=== PATIENT | male | born 1950 | race Caucasian/White ===

== ENCOUNTER 2019-06-08 23:34 | Inpatient (IN) ==
--- NOTE | 2019-06-09 00:14 | EKG Report ---
Test Performed on : 06/08/2019 11:43:29 PM Test Reason : CP Blood Pressure : / mmHG Vent. Rate : 098 BPM Atrial Rate : 288 BPM P-R Int : 000 ms QRS Dur : 088 ms QT Int : 348 ms P-R-T Axes : 000 027 -59 degrees QTc Int : 444 ms Atrial fibrillation. with premature ventricular or aberrantly conducted complexes. Nonspecific ST and T wave abnormality Abnormal ECG When compared with ECG of 21-MAY-2019 10:00, (Unconfirmed) Nonspecific T wave abnormality, improved in Lateral leads Unconfirmed Result
[2019-06-09] MEDS ORDERED: ASPIRIN PO ONE (00:37)
[2019-06-09 01:31] LABS: ALB/GLOB RATIO 2.1; ALBUMIN 4.5 g/dL (3.5-5.0); CALCIUM 8.9 mg/dL (8.8-10.2); CREATININE 1.3 mg/dL (0.7-1.2); MAGNESIUM 1.7 mg/dL (1.5-2.7); POTASSIUM 4.9 mmol/L (3.5-5.1); TOTAL BILIRUBIN 0.49 mg/dL (0.20-1.00); TOTAL PROTEIN 6.6 g/dL (6.3-8.3)
--- NOTE | 2019-06-09 02:08 | PROVIDER DOCUMENTATION ---
This chart was entered by Leanna Vazquez Scribe, acting as scribe for Aura Montoya MD. HPI-Chest Pain - General Chief Complaint: Chest Pain Stated Complaint: CEHST PAIN, HEART FLUTTERING Time Seen by Provider: 06/09/19 00:19 Source: patient Allergies/Adverse Reactions: Patient Allergies Allergy/AdvReac Type Severity Reaction Status Date / Time No Known Allergies Allergy Verified 06/16/18 09:14 Home Medications: Home Medication List Medication Instructions Recorded Confirmed Last Taken Type Allopurinol 100 mg PO DAILY 12/23/17 06/09/19 12/13/18 History Donepezil [Aricept] 10 mg PO QHS 12/23/17 06/09/19 12/12/18 History Carvedilol [Coreg] 12.5 mg PO BID 12/26/17 06/09/19 12/13/18 History Metformin [Glucophage] 500 mg PO BID CC 12/26/17 06/09/19 12/13/18 History PRAVAstatin [Pravachol] 20 mg PO DAILY 12/26/17 06/09/19 12/13/18 History Furosemide [Lasix] 40 mg PO DAILY #30 tab 01/01/18 06/09/19 12/13/18 Rx Spironolactone [Aldactone] 25 mg PO DAILY #30 tab 01/01/18 06/09/19 12/13/18 Rx Sacubitril/Valsartan [Entresto 24 1 tab PO BID 06/16/18 06/09/19 12/13/18 History mg-26 mg Tablet] Tamsulosin [Flomax] 0.4 mg PO DAILY 06/19/18 06/09/19 12/13/18 History Apixaban [Eliquis] 5 mg PO BID 12/13/18 06/09/19 Unknown History Omeprazole 40 mg PO DAILY 12/13/18 06/09/19 12/13/18 History Doxepin HCl [Silenor] 3 mg PO HS PRN 06/09/19 06/09/19 Unknown History - History of Present Illness-CP Nature of Presenting Problem: Pt is a 69 yom who presents to the ED with a cc of L side chest pain that began at 10 pm. States that he was resting when the pain began. Also reports SOB. Reports hx of [place] and cardiac stent. Reports L shoulder pain. Denies any N/V/D Denies fever, cough, or headache. Denies dizziness. Does not present to the ED with any other complaints. Reports hx of afib. Location: reports: other (L side of chest) Chest Pain Radiation: reports: shoulders (L shoulder) Quality of Pain: reports: sharp Severity in ED: mild Onset/Duration: 1-3 hours ago Timing: still present Context/Activities at Onset: reports: rest Modifying Factors: improves with: nothing Associated Symptoms: reports: shortness of breath Nitro Today/Relief: no nitro taken today Aspirin Treatment Today: no aspirin today Prior Chest Pain/Cardiac Workup: reports: other (cardiac stent) Similar Symptoms Previously?: Yes Recently Seen Here or By Another Healthcare Provider: No Review of Systems - Adult - REVIEW OF SYSTEMS - ADULT Constitutional: reports: see HPI Eyes: reports: no symptoms reported Ears, Nose, Mouth & Throat: reports: no symptoms reported Cardiovascular: reports: see HPI, chest pain (L side) Respiratory: reports: see HPI, shortness of breath Gastrointestinal: reports: no symptoms reported Genitourinary: reports: no symptoms reported Musculoskeletal: reports: see HPI, joint pain (L shoulder) Integumentary: reports: no symptoms reported Neurological: reports: no symptoms reported Psychiatric: reports: no symptoms reported Endocrine: reports: no symptoms reported Hematologic/Lymphatic: reports: no symptoms reported Allergic/Immunologic: reports: no symptoms reported All Other Systems: Reviewed and Negative Past History - Adult - PAST MEDICAL HISTORY-ADULT Review of Records: reports: Old Records Reviewed, Nursing Assessment Review, Medications Reviewed, Social history reviewed & non-contributory. Major Childhood Illnesses: reports: denies history Cardiovascular: reports: A-Fib, HTN Respiratory: reports: denies history Gastrointestinal: reports: denies history Obstetrical/Gynecological: reports: denies history Genitourinary: reports: denies history Musculoskeletal: reports: denies history Neurological: reports: denies history Endocrine/Immune: reports: Diabetes Other Conditions: reports: denies history - SOCIAL HISTORY Smoking: quit greater than 1 year Substance Use: denies Living Situation: family Physical Exam-General - PHYSICAL EXAM-ADULT Initial Vital Signs Reviewed: No - CONSTITUTIONAL General Appearance: alert, no apparent distress - EYES Eyes: pink conjunctivae - HEAD, EARS, NOSE, MOUTH & THROAT HENMT: normocephalic/atraumatic, moist mucous membranes, normal ENT inspection - NECK Neck: non-tender, full range of motion, supple, normal inspection - RESPIRATORY Respiratory: lungs clear, normal breath sounds. negative: chest non-tender (L side tenderness), crackles - CARDIOVASCULAR Cardiovascular: normal peripheral pulses, regular rate, rhythm - GASTROINTESTINAL (ABDOMEN) Abdominal Exam: normal bowel sounds, non tender, soft - MUSCULOSKELETAL Extremity: normal range of motion, normal inspection - SKIN Integumentary: normal color, normal turgor, warm/dry. negative: ecchymosis, erythema - NEUROLOGIC Neurologic: grossly normal - PSYCHIATRIC Psych/Mental Status: normal mood/affect, normal thought content, normal thought process, oriented x 3 - HEART Score HEART Score: History: Moderately Suspicious HEART Score: ECG: Non-Specific Repolarization Disturbance/LBBB/PM HEART Score: Age: > or = 65 Years HEART Score: Risk Factors for Atherosclerotic Disease: > or = 3 Risk Factors or History of Atherosclerotic Disease HEART Score: Troponin: < or = Normal Limit Total HEART Score:: 6 Progress - PLAN OF CARE/RESULTS Progress/Plan/Lab Results: Vital Signs - 8 hr 06/09/19 00:14 06/09/19 01:13 Temperature 97.9 F Pulse Rate 98 H 86 Respiratory Rate 17 16 Blood Pressure 135/84 131/62 O2 Sat by Pulse Oximetry 98 98 Laboratory Results - last 24 hr 06/09/19 06/09/19 06/09/19 00:32 00:32 00:32 WBC 2.36 L RBC 2.80 L Hgb 7.0 L Hct 23.4 L MCV 83.6 MCH 26.1 L MCHC 31.2 L RDW Std Deviation 18.1 H Plt Count 180 MPV 10.4 Neut % (Auto) 52.5 Lymph % (Auto) 19.5 L [place] % (Auto) 24.2 H Eos % (Auto) 0.0 Baso % (Auto) 0.8 Immature Gran # (Auto) 0.07 H Neut # (Auto) 1.24 L Lymph # (Auto) 0.46 L [place] # (Auto) 0.57 Eos # (Auto) 0.00 Baso # (Auto) 0.02 Sodium 135 L Potassium 4.9 Chloride 101 Carbon Dioxide 22 L Anion Gap 12 BUN 32 H Creatinine 1.3 H Estimated GFR/1.73 m2 54 BUN/Creatinine Ratio 25 Glucose 304 H Calculated Osmolality 288 Calcium 8.9 Magnesium 1.7 Total Bilirubin 0.49 AST 31 ALT 30 Alkaline Phosphatase 214 H Creatine Kinase 43 Troponin T High Sens 29 H Total Protein 6.6 Albumin 4.5 Globulin 2.1 Albumin/Globulin Ratio 2.1 Orders Category Date Time Status CHEST-1 VIEW [RAD] Stat Exams 06/09/19 00:52 Taken CBC WITH ELECTRONIC DIFF [HEME] Stat Lab 06/09/19 00:32 Completed CK PROFILE [SP CHEM] Stat Lab 06/09/19 00:32 Completed COMPREHENSIVE METABOLIC PANEL [CHEM] Stat Lab 06/09/19 00:32 Completed MAGNESIUM [CHEM] Stat Lab 06/09/19 00:32 Completed TROPONIN T HIGH SENSITIVITY Stat Lab 06/09/19 00:32 Completed Aspirin Med 06/09/19 00:37 Discontinued 324 mg PO NOW ONE EKG [EKG] Stat Ther 06/08/19 23:36 Draft Result Diagrams: 06/09/19 00:32 06/09/19 00:32 - EKG 1 Time of EKG reading by physician:: 23:45 EKG Read and Signed by:: Aura Montoya EKG Interpretation (*Must complete 3 of following elements*): Abnormal Rate: 98 Rhythm: AFib with premature ventricular or aberrantly conducted complexes [place]: normal QRS: normal HI Interval: normal ST Wave: non-specific ST changes (and t wave abnormality) Prior EKG Comparison: no prior EKG Comments: agree no stemi - CONSULTS/PCP/HOSPITALIST Notification #1 *Consult/PCP/Hospitalist*: D/W DR PAULSON Time Discussed: 02:04 Consult Disposition: Admit Departure - Departure Date of Disposition Decision: 06/09/19 Time of Disposition Decision: 02:06 DIAGNOSIS: Chest pain, Anemia Disposition: ADMITTED INPATIENT 09 Certified Medical Emergency: Emergent Condition: Stable Referrals and Follow-Ups: None,PCP [Primary Care Provider] - - Critical Care Note This patient required my direct & personal management of CC.: No Attestation - Physician/ STEFANIE Attestation Patient care was provided by Advanced Practice Provider:: No The physician spent face to face time with patient:: Yes Advanced Practice Provider documentation review:: Supervising physician onsite and consulted in the evaluation and care of this patient. The physician did have a face to face encounter with the patient. This chart was documented by the indicated scribe, (Leanna Vazquez Scribe) and accurately reflects the services I performed and decisions made by me, Aura Montoya MD, as attested by the provider's signature.
[2019-06-09 02:25] LABS: INR 1.13; PROTIME 14.7 Seconds (11.0-16.0)
[2019-06-09] MEDS ORDERED: TYLENOL PO PRN (03:12)
[2019-06-09] MEDS ORDERED: ZOFRAN IV PRN (03:12)
[2019-06-09 03:38] LABS: BASO# 0.02 X1000 (0.0-0.2); BASO% 0.9 % (0.0-0.8); EOS# 0.01 X1000 (0.0-0.7); EOS% 0.5 % (0.0-10.0); HEMATOCRIT 23.4 % (42.0-52.0); HEMOGLOBIN 7.3 g/dL (14.0-18.0); IMM GRAN# 0.09 X1000 (0.0-0.04); IMM GRAN% 4.1 % (0.0-0.5); LYMPH# 0.48 X1000 (1.2-3.4); LYMPH% 21.6 % (20.5-51.1); MCH 26.1 PG (27-31); MCHC 31.2 g/dL (33-37); MCV 83.6 FL (81-99); MONO# 0.46 X1000 (0.11-0.59); MONO% 20.7 % (1.7-9.3); MPV 9.5 FL (7.4-10.4); NEUT# 1.16 X1000 (1.4-6.5); NEUT% 52.2 % (42.2-75.2); PLT 180 X1000 (130-400); RBC 2.75 XMIL (4.7-6.1); RDW 18.1 % (11.5-14.5); WBC 2.22 X1000 (4.8-10.8)
[2019-06-09] MEDS: LASIX IV SCH ×2 (04:14→16:08)
[2019-06-09 04:21] LABS: IRON SATURATION 42 %; TIBC 309 ug/dL; TOTAL IRON 129 ug/dL (53-167); UNBOUND IRON 180 ug/dL (112-346)
--- NOTE | 2019-06-09 05:23 | Diag Imaging Result Doc PS360 ---
EXAM: CHEST-1 VIEW HISTORY: cp TECHNIQUE: Single view COMPARISON: 12/28/2017 FINDINGS: The lungs are well expanded. The heart enlarged. There are sternal wires. Mild central vascular prominence. There are no infiltrates. No effusion identified. IMPRESSION: Cardiomegaly with mild central vascular prominence. Electronically signed by Hakan Franklin 06/09/2019 5:21 AM
[2019-06-09] MEDS: LOVENOX SUBQ SCH ×3 (05:30→17:25)
--- NOTE | 2019-06-09 06:07 | EKG Report ---
Test Performed on : 06/09/2019 05:02:58 AM Test Reason : Follow up EKG Blood Pressure : / mmHG Vent. Rate : 077 BPM Atrial Rate : 072 BPM P-R Int : 000 ms QRS Dur : 094 ms QT Int : 380 ms P-R-T Axes : 000 011 -36 degrees QTc Int : 430 ms Atrial fibrillation. Nonspecific T wave abnormality Abnormal ECG When compared with ECG of 08-JUN-2019 23:43, (Unconfirmed) No significant change was found Confirmed by Nel Machado MD ([id number]) on 06/09/2019 8:42:23 AM
[2019-06-09] MEDS: HUMALOG SUBQ SCH ×4 (07:00→21:21)
[2019-06-09 07:13] LABS: BASO# 0.01 X1000 (0.0-0.2); BASO% 0.5 % (0.0-0.8); EOS# 0.01 X1000 (0.0-0.7); EOS% 0.5 % (0.0-10.0); HEMATOCRIT 22.8 % (42.0-52.0); HEMOGLOBIN 7.1 g/dL (14.0-18.0); IMM GRAN# 0.09 X1000 (0.0-0.04); IMM GRAN% 4.3 % (0.0-0.5); LYMPH# 0.52 X1000 (1.2-3.4); LYMPH% 24.8 % (20.5-51.1); MCH 25.9 PG (27-31); MCHC 31.1 g/dL (33-37); MCV 83.2 FL (81-99); MONO# 0.42 X1000 (0.11-0.59); MPV 8.3 FL (7.4-10.4); NEUT# 1.05 X1000 (1.4-6.5); NEUT% 49.9 % (42.2-75.2); PLT 143 X1000 (130-400); RBC 2.74 XMIL (4.7-6.1); RDW 17.9 % (11.5-14.5)
[2019-06-09] MEDS: PRILOSEC PO SCH (07:16)
[2019-06-09] MEDS ORDERED: GLUCOPHAGE PO SCH (08:00)
[2019-06-09 08:13] LABS: ANISOCYTOSIS OCCASIONAL; HYPOCHROM OCCASIONAL; LYMPHS 32 % (21-51); MICROCYTOSIS OCCASIONAL; MONO 18 % (1-9); SEGS 48 % (42-75)
[2019-06-09] MEDS ORDERED: ELIQUIS PO SCH (09:00)
[2019-06-09] MEDS ORDERED: PRAVACHOL PO SCH (09:00)
--- NOTE | 2019-06-09 09:35 | EKG Report ---
Test Performed on : 06/09/2019 08:21:05 AM Test Reason : CP Blood Pressure : / mmHG Vent. Rate : 093 BPM Atrial Rate : 129 BPM P-R Int : 000 ms QRS Dur : 094 ms QT Int : 378 ms P-R-T Axes : 000 011 154 degrees QTc Int : 469 ms Atrial fibrillation. with premature ventricular or aberrantly conducted complexes. Nonspecific T wave abnormality Abnormal ECG When compared with ECG of 09-JUN-2019 08:18, (Unconfirmed) Previous ECG has undetermined rhythm, needs review Confirmed by Nel Machado MD ([id number]) on 06/11/2019 4:13:52 PM
--- NOTE | 2019-06-09 10:37 | HISTORY AND PHYSICAL ---
SOURCE OF HISTORY: Patient. CHIEF COMPLAINT: Intermittent chest pain. HISTORY OF PRESENT ILLNESS: Mr. Thompson is a 69-year-old man with past medical history of coronary artery disease requiring CABG in , multiple stents in the past, transcutaneous aortic valve replacement in year 2017, chronic anemia, portal hypertension with ascites, chronic atrial fibrillation on Eliquis, who comes in with chief complaints of intermittent chest pain which has been ongoing for several months. The patient has dementia and the patient's daughter, who provided historical data to the emergency room physician, has already left so my source of history is only emergency room records and my conversation with the emergency room physician. The patient has not been able to provide meaningful historical data. However, patient does mention that he has been having intermittent chest pain since quite some time, located in the center of the heart, associated with shortness of breath, palpitations. However, he could not tell me the nature of his chest pain, radiation symptoms. He states that often times physical exertion makes it worse and at rest, he may get better. However, considering his dementia and inconsistency in his responses, the historical data could not be confirmed. In the emergency room, he was found to be hemodynamically stable with a saturation of 98% on room air. Considering his chest pain symptoms and history of coronary artery disease, Hospitalist team was consulted for further management. REVIEW OF SYSTEMS: Could not be obtained. PAST MEDICAL HISTORY: 1. Coronary artery bypass graft in requiring multiple stents. 2. Transcutaneous aortic valve replacement in 2017. 3. Previous history of chronic alcohol abuse which he quit about 8 years ago. 4. Dementia. 5. Chronic anemia. 6. Congestive heart failure with ejection fraction of 35% in 2018 which improved to 55% in 2019. 7. History of chronic obstructive pulmonary disease. ALLERGIES: No known allergies. PAST SURGICAL HISTORY: 1. Includes transcutaneous aortic valve replacement. 2. Coronary artery bypass graft. SOCIAL HISTORY: 1. Currently he denies any smoking. 2. Previous history of alcohol abuse, unclear when he exactly quit, probably 6 to 8 years ago. 3. No recreational substance. FAMILY HISTORY: Noncontributory. CURRENT MEDICATIONS: 1. Donepezil 10 mg at nighttime. 2. Allopurinol 100 mg daily. 3. Pravastatin 20 mg daily. 4. Carvedilol 12.5 mg b.i.d. 5. Metformin 500 mg b.i.d. 6. Furosemide 40 mg daily. 7. Spironolactone 25 mg daily. 8. Entresto 1 tablet b.i.d. 9. Tamsulosin 0.4 mg daily. 10. Apixaban 5 mg b.i.d. 11. Omeprazole 40 mg daily. 12. Doxepin 3 mg at nighttime as needed. CURRENT VITAL SIGNS: Temperature of 97.9 degrees, pulse 86, respiratory rate 16, blood pressure 131/60, saturating 98% room air. PHYSICAL EXAMINATION: GENERAL: The patient is not in acute distress. HEENT: Oral cavity is moist. LUNGS: Air entry bilaterally equal. No wheeze, rhonchi, or crackles. CARDIOVASCULAR: S1, S2 normal. Irregularly irregular. No murmur, rub or gallop. He does have occasional S3 gallop. ABDOMEN: Soft. Tympanic to percussion. EXTREMITIES: He has bilateral lower extremity edema. NECK: He has significant distention of jugular venous pulsation. His jugular venous pulsation could be identified at anterior border of sternocleidomastoid at the jaw line. NEUROLOGIC: He is alert, he is oriented to himself. He could not tell me the year. He could tell it was hospital. He was not entirely oriented with the situation next. LABORATORY DATA: Suggestive of WBC of 2.3, hemoglobin 7, platelet 180,000. His initial troponin was elevated to 29. BNP was pending. EKG had atrial fibrillation with nonspecific ST wave changes. ASSESSMENT AND PLAN: 1. NSTEMI: Chest pain with history of coronary artery disease and CABG. EKG did not have acute coronary syndrome-related ST-T changes. I will order another EKG and trend troponins. He was given 325 mg of aspirin in the emergency room. He is not listed to be taking daily aspirin at home. I will follow up with echocardiogram. Based on his troponins and echocardiogram, I will consider Cardiology consultation. 2. Acute congestive heart failure exacerbation. His ejection fraction was 35% in 2017, which had improved to 55% in 2019. Currently, he does have elevated jugular venous pressure, bilateral lower extremity edema, and S3 gallop suggestive of acute heart failure. I will start him on intravenous Lasix. Continue home spironolactone, Entresto and carvedilol. I will follow up with echocardiogram and proBNP. 3. History of chronic leukopenia and normocytic anemia with a component of iron deficiency. I will repeat iron panel and follow up with a CBC. I will also type and cross match in case he may need blood transfusion in future. Previously, Oncology team had evaluated him in 2018 and his anemia was thought to be related to anemia of chronic inflammation and to an extent iron deficiency. 4. Chronic atrial fibrillation. Continue home carvedilol and apixaban. 5. Dementia. Continue home donepezil. I am holding his home tricyclic antidepressant. 6. Others. Continue tamsulosin for benign prostatic hypertrophy, pravastatin for hyperlipidemia, omeprazole for chronic gastroesophageal reflux disease, sliding scale insulin for history of [id number] diabetes mellitus. 7. In 2018, patient was also diagnosed to have ascites with portal hypertension, though the liver biopsy at that time had reactive liver parenchyma without known definitive cirrhosis. 8. Disposition. I will monitor patient inside the hospital with telemetry unit and will trend troponins. Considering patient's dementia, further aggressive intervention for his cardiovascular disease could be challenging. Further information needs to be sought regarding patient's baseline functional status considering his memory impairment, his medication compliance, and accordingly, further workup including Cardiology consultation should be considered. cc: Irwin Fernando MD MTDD
[2019-06-09] MEDS: ALDACTONE PO SCH (12:02)
[2019-06-09] MEDS: COREG PO SCH ×2 (12:03→21:20)
[2019-06-09] MEDS: LIPITOR PO SCH (12:03)
[2019-06-09] MEDS: ASPIRIN PO SCH (12:03)
[2019-06-09] MEDS: ZYLOPRIM PO SCH (12:03)
[2019-06-09] MEDS: ENTRESTO 24 MG-26 MG TABLET PO SCH ×2 (12:03→21:20)
[2019-06-09] MEDS: FLOMAX PO SCH (12:04)
[2019-06-09] MEDS ORDERED: NS 500 ML IV ONE (13:27)
--- NOTE | 2019-06-09 14:23 | CARDIOLOGY CONSULTATION ---
DATE: 06/09/2019 Mr. Thompson is a 69-year-old, gentleman with history of coronary artery disease, coronary artery bypass grafting, multiple stents, transcutaneous aortic valve replacement 2017. He comes in with complaints of shortness of breath. Patient has dementia. When he presented to the emergency room he complained of having chest tightness; however, when I examined him he does not complain of any chest pain. He does not state that he came in with chest pain. He says he was more short of breath. There is no palpitations. There is no dizziness or syncope. As far as his recent episodes are concerned he has had occasional episodes of chest discomfort. Again, he cannot quantify or is not sure of the radiation. He came to the emergency room and was subsequently admitted. Initial cardiac enzymes were negative. Subsequent cardiac enzymes were abnormal. REVIEW OF SYSTEM: A 14-point review of systems was done. GI System: There is no history of nausea, vomiting, diarrhea. There is no history of hematemesis or melena. Central nervous system: No focal weakness to suggest a CVA or TIA. Genitourinary System: There is no dysuria or hematuria. PAST MEDICAL HISTORY: 1. Coronary artery disease, status post coronary artery bypass grafting 1991 with GARCIA to left anterior descending artery, SVG to PDA, bare metal stent also in 08/14/2004. 2. He had a cardiac catheterization in 2016 which revealed left main was normal. Left main distal 80%. LAD eccentric calcified with competitive flow from GARCIA. Circumflex 70%, proximal 95%. RCA 100%. GARCIA to LAD put was patent. Vein graft to PDA in-stent stenosis. 3. The patient underwent a TAVR 06/22/2016 with a bioprosthetic valve. 4. History of heart failure. 5. Severe COPD. 6. Dementia. 7. Hypertension. 8. Peripheral vascular disease. 9. Bilateral carotid disease. 10. Splenomegaly. 11. Chronic atrial fibrillation. ALLERGIES: He is not known to be allergic to any medication. There is no history of alcohol or tobacco abuse. HOME MEDICATIONS: 1. Donepezil 10. 2. Allopurinol 100. 3. Pravastatin 20. 4. Coreg 12.5 b.i.d. 5. Metformin 500 b.i.d. 6. Entresto 1 tablet twice daily. 7. Tamsulosin 0.4. 8. Eliquis 5 mg p.o. b.i.d. 9. Omeprazole 40. PHYSICAL EXAMINATION: Vital Signs: Blood pressure was 131/60. Cardiac: First and second heart sounds were heard. There was faint systolic murmur. Respiratory system: Normal air entry. There are no crepitations or rhonchi. Abdomen: Soft. He has mild lower extremity edema. Central nervous system: Alert, was moving all 4 extremities. Detailed central nervous system examination not performed. Electrocardiogram revealed atrial fibrillation with nonspecific ST-T changes. LABORATORY EXAMINATION: WBC 2.1, hemoglobin 7.1, hematocrit 22.8, platelet count of 143,000. Chemistry initial troponins were negative. Subsequently troponin was high at 209 and 336. ProBNP elevated at 4019. Iron was 129. TIBC 309. Sodium 135, potassium 4.9, BUN 32, creatinine 1.3. Glucose 304. Chest x-ray, pulmonary venous congestion. No infiltrates. ASSESSMENT AND PLAN: Mr. Bassem Thompson is a 69-year-old gentleman with history of TAVR, coronary artery disease, coronary artery bypass grafting, left ventricular dysfunction in the past with ejection fraction of 35%. Subsequently in 2019 ejection fraction had normalized. Comes with complaints of shortness of breath. When I saw him he had denied chest pain; however, when he came to the emergency room he had complained of chest pains. Again he has some element of dementia as well. He also has chronic atrial fibrillation. From a cardiac standpoint, he has abnormal cardiac enzymes suggestive off a non-Q-wave myocardial infarction type 2, probably is multifactorial related to significant anemia as well and he also has shortness of breath. RECOMMENDATIONS: 1. Given his shortness of breath we will get an echocardiogram to reassess cardiac and valvular function. 2. As far as his abnormal cardiac enzymes he had not complained to me about chest pains but his cardiac enzymes are abnormal as mentioned above. I will look at his echocardiogram and will probably do a Cardiolite stress test to assess for and rule out ischemia or plan LHC 3. He has chronic atrial fibrillation. The rate is under control. Would recommend continuing his home medications. 4. He has significant anemia which could contribute to his symptoms as well as heart failure. Would recommend blood transfusion. 5. Chronic atrial fibrillation on Coreg and Eliquis. I have not made any changes. Currently Eliquis is held and he is on Lovenox. Would recommend continuing that. 6. As far as his anemia is concerned, it has been chronic. In 2018 he was diagnosed to have ascites and portal hypertension. At that time liver biopsy showed reactive parenchyma without definite evidence of cirrhosis. Currently he is stable from that point of view. 7. He is on Lasix. Would recommend continuing the same. 8. He has been on Entresto as well for his LV dysfunction, heart failure. Would recommend continuing with the Entresto. Thank for the consult. We will follow hospital course. cc: Mateo Mccurdy MD MTDHarry
[2019-06-09] MEDS: ARICEPT PO SCH (21:20)
[2019-06-10] MEDS: LASIX IV SCH (04:12)
[2019-06-10] MEDS: LOVENOX SUBQ SCH ×2 (06:32→18:39)
[2019-06-10] MEDS: PRILOSEC PO SCH (06:32)
[2019-06-10] MEDS: HUMALOG SUBQ SCH ×4 (06:32→21:58)
[2019-06-10 08:18] LABS: BASO# 0.01 X1000 (0.0-0.2); BASO% 0.5 % (0.0-0.8); HEMATOCRIT 23.6 % (42.0-52.0); HEMOGLOBIN 7.2 g/dL (14.0-18.0); IMM GRAN# 0.08 X1000 (0.0-0.04); IMM GRAN% 4.2 % (0.0-0.5); LYMPH# 0.73 X1000 (1.2-3.4); LYMPH% 38.4 % (20.5-51.1); MCHC 30.5 g/dL (33-37); MCV 85.2 FL (81-99); MONO# 0.41 X1000 (0.11-0.59); MONO% 21.6 % (1.7-9.3); NEUT# 0.67 X1000 (1.4-6.5); NEUT% 35.3 % (42.2-75.2); PLT 124 X1000 (130-400); RBC 2.77 XMIL (4.7-6.1); RDW 17.7 % (11.5-14.5)
[2019-06-10 08:55] LABS: CALCIUM 9.4 mg/dL (8.8-10.2); CREATININE 1.5 mg/dL (0.7-1.2); MAGNESIUM 1.9 mg/dL (1.5-2.7); POTASSIUM 4.3 mmol/L (3.5-5.1)
[2019-06-10] MEDS: LIPITOR PO SCH (09:27)
[2019-06-10] MEDS: COREG PO SCH ×2 (09:27→21:57)
[2019-06-10] MEDS: FLOMAX PO SCH (09:28)
[2019-06-10] MEDS: ZYLOPRIM PO SCH (09:28)
[2019-06-10] MEDS: ENTRESTO 24 MG-26 MG TABLET PO SCH ×2 (09:28→21:57)
[2019-06-10] MEDS: ALDACTONE PO SCH (09:28)
[2019-06-10] MEDS: ASPIRIN PO SCH (09:28)
[2019-06-10] MEDS ORDERED: GRANIX SUBQ ONE (14:01)
--- NOTE | 2019-06-10 14:06 | ECHO REPORT ---
ORDER DATE: 06/09/2019 INTERPRETING PHYSICIAN: Dr. Mateo Mccurdy. ECHOCARDIOGRAPHIC MEASUREMENTS: 1. Interventricular septum 1.1. 2. Left ventricular posterior wall 1.1. 3. Diastolic diameter 5.9. 4. Left atrium 4.9. 5. Aorta 3.7. SUMMARY OF THE 2-DIMENSIONAL IMAGIN. Bioprosthetic valve in the aortic position was stable. 2. Mitral valve was normal. 3. Atrial fibrillation was noted. 4. Pulmonic valve was normal. There is mild pulmonary regurgitation. 5. Tricuspid valve was normal. 6. There is mitral annular calcification. 7. There is biatrial enlargement. 8. There is moderate mitral regurgitation. 9. There is moderate tricuspid regurgitation. Peak velocity across the tricuspid valve was 3.5 m/sec. 10. Pulmonary artery systolic pressure of 58 mmHg. 11. Peak velocity across the aortic valve was 2.1 m/sec with a mean gradient of 11 mmHg. 12. Aortic valve area of 1.1 cm2 in keeping with bioprosthetic aortic valve. There is no aortic regurgitation. 13. Normal left ventricular cavity size. Estimated ejection fraction of 50% to 55%, low normal. 14. There is mild septal hypokinesis. 15. There is no pericardial effusion or obvious intracardiac mass or thrombus seen. cc: MD Irwin Banda MD
--- NOTE | 2019-06-10 14:20 | PROGRESS NOTE ---
DATE: 06/10/2019 SUBJECTIVE: This patient seems to be stable and even though we transfused him with 1 unit of PRBC yesterday, the hemoglobin did not go up, from 7.1 to 7.2. He has been on treatment with Dr. Krueger which I will consult. I will put this patient back on his home medication, ruxolitinib. So, I will wait for recommendations. On the other hand, I will stop the Lasix at this moment because the kidney function is going up. BUN is 31 and creatinine 1.5 and his baseline is around 1.1. His troponins are elevated still but compared with yesterday, the troponin is trending down. It looks like this patient will have a stress test done tomorrow. OBJECTIVE: Vital Signs: Temperature 98.2 degrees, pulse 68, respiratory rate 22, blood pressure 106/56, oxygen saturation 100% on room air. HEENT: Head normocephalic. No trauma. PERRLA. Neck: Supple. No JVD. No masses. Central trachea. Chest: Clear to auscultation. No wheezing. No rales. Abdomen: Soft, nontender, nondistended. No hepatosplenomegaly. Extremities: He does have some bilateral extremity edema. No clubbing. No cyanosis. Neurological: Patient is awake. He is answering my questions. He is following commands. LABORATORY: WBC 1.9, hemoglobin 7.2, hematocrit 23.6, platelet 124,000. Sodium 141, potassium 4.3, chloride 102, bicarbonate 27, BUN 31, creatinine 1.5, glucose 166, calcium 9.4, magnesium 1.9. ASSESSMENT AND PLAN: 1. History of coronary artery disease with elevated troponin, concerning for [id number] myocardial infarction. Cardiology Department on board. He is not complaining of chest pain or shortness of breath at this moment. I will continue with same management. Stress test tomorrow. 2. Acute congestive heart failure exacerbation. He has been placed on Lasix which I will stop right now because of the elevated BUN and creatinine. I will monitor. He is not complaining of chest pain or shortness of breath. 3. History of chronic leukopenia and normocytic anemia with a component of iron deficiency. I will put this patient back on his home medication and I will request an evaluation by Hematology/Oncology Department, Dr. Krueger. 4. Chronic atrial fibrillation. Continue with carvedilol and anticoagulation. 5. Dementia. Continue with donepezil. 6. Benign prostatic hypertrophy. Continue with tamsulosin. 7. Hyperlipidemia. Continue with pravastatin. 8. Gastroesophageal reflux disease. Continue with PPIs. 9. He has a history of diabetes and we will go ahead and continue with sliding scale insulin and pattern of blood sugar. cc: Robson Acuna MD
[2019-06-10] MEDS: FOLIC ACID PO SCH (15:47)
[2019-06-10] MEDS ORDERED: PATIENT'S OWN MED PO SCH (21:00)
[2019-06-10] MEDS: ARICEPT PO SCH (21:57)
[2019-06-11] MEDS: PRILOSEC PO SCH (06:22)
[2019-06-11] MEDS: LOVENOX SUBQ SCH (06:40)
[2019-06-11] MEDS: HUMALOG SUBQ SCH ×4 (06:40→22:28)
[2019-06-11 08:09] LABS: BASO# 0.01 X1000 (0.0-0.2); BASO% 0.3 % (0.0-0.8); EOS# 0.01 X1000 (0.0-0.7); EOS% 0.3 % (0.0-10.0); HEMATOCRIT 24.7 % (42.0-52.0); HEMOGLOBIN 7.4 g/dL (14.0-18.0); IMM GRAN# 0.05 X1000 (0.0-0.04); IMM GRAN% 1.3 % (0.0-0.5); LYMPH% 13.5 % (20.5-51.1); MCV 86.7 FL (81-99); MONO# 0.64 X1000 (0.11-0.59); MONO% 17.3 % (1.7-9.3); NEUT% 67.3 % (42.2-75.2); PLT 153 X1000 (130-400); RBC 2.85 XMIL (4.7-6.1); RDW 17.9 % (11.5-14.5); WBC 3.71 X1000 (4.8-10.8)
[2019-06-11 08:43] LABS: CALCIUM 8.6 mg/dL (8.8-10.2); CREATININE 1.5 mg/dL (0.7-1.2)
[2019-06-11 08:45] LABS: EOS 2 % (1-10); LYMPHS 14 % (21-51); MONO 8 % (1-9); SEGS 76 % (42-75)
[2019-06-11] MEDS ORDERED: LEXISCAN ONE (09:02)
[2019-06-11] MEDS: FOLIC ACID PO SCH (11:25)
[2019-06-11] MEDS: ALDACTONE PO SCH (11:25)
[2019-06-11] MEDS: ASPIRIN PO SCH (11:25)
[2019-06-11] MEDS: LIPITOR PO SCH (11:25)
[2019-06-11] MEDS: ENTRESTO 24 MG-26 MG TABLET PO SCH ×2 (11:25→22:27)
[2019-06-11] MEDS: COREG PO SCH ×2 (11:25→22:20)
[2019-06-11] MEDS: FLOMAX PO SCH (11:25)
[2019-06-11] MEDS: ZYLOPRIM PO SCH (11:25)
[2019-06-11] MEDS ORDERED: NS 500 ML IV SCH (13:00)
--- NOTE | 2019-06-11 14:23 | Diag Imaging Result Document ---
PROCEDURE NAME: MYOCARDIAL PERF SCAN, STR/REST - 06/11/2019 INDICATION: Abnormal cardiac enzymes, history of bypass. PROCEDURES PERFORMED: 1. Lexiscan stress. 2. One-day stress/rest myocardial perfusion imaging (rest dose 10.8 millicuries, stress dose 34 mCi). LEXISCAN STRESS RESULTS: 1. Baseline EKG shows atrial fibrillation, PVCs versus aberrantly conducted beats. Nonspecific ST-T changes. 2. Lexiscan stress does not demonstrate any clear evidence of ischemic related EKG changes or significant arrhythmias. PERFUSION IMAGING RESULTS: 1. No evidence of abnormal extracardiac uptake. 2. TID ratio 0.93. 3. Perfusion imaging demonstrates a small-sized, moderate intensity, fixed defect located in the basal anterior lateral. This suggests possible scar. There is no evidence of ischemia on this study. 4. Reduced ejection fraction of 48%. The end-diastolic volume is 163. End-systolic volume is 84. Some evidence for global hypokinesis on this study. cc: MD Mateo Martell MD
--- NOTE | 2019-06-11 14:40 | PROGRESS NOTE ---
DATE: 06/11/2019 SUBJECTIVE: The patient seems to be stable. Even though he received 1 unit of PRBC, the hemoglobin increased from 7.1 to 7.4. He has been getting treatment by Dr. Krueger, which I have consulted already pending recommendations. I have continued with ruxolitinib. BUN and creatinine still elevated. I discussed the case with Dr. Mccurdy and we will give him only 500 mL of fluid to see if that helps with the BUN and creatinine. Tomorrow, hopefully, he can be discharged home. A stress test seems to be stable. No acute issues but pending report. OBJECTIVE: Vital Signs: Temperature 97.3 degrees, pulse 96, respiratory rate 16, blood pressure 112/62, oxygen saturation 98 on room air. HEENT: Head normocephalic. No trauma. PERRLA. Neck: Supple. No JVD. No masses. Central trachea. Chest: Clear to auscultation. No wheezing. No rales. Abdomen: Soft, nontender, nondistended. No hepatosplenomegaly. Extremities: He has some bilateral extremity edema, trace to 1+. No clubbing, no cyanosis. Neurological Examination: The patient is awake. He is answering my questions. He is following commands. Laboratory: WBCs 3.7, hemoglobin 7.4, hematocrit 24.7, platelets 153,000. Sodium 138, potassium 4, chloride 100, bicarbonate 21, BUN 36, creatinine 1.5, glucose 155, calcium 8.6. ASSESSMENT AND PLAN: 1. History of coronary artery disease with elevated troponin, concerning for non-ST elevation myocardial infarction. Cardiology department on board. He had a stress test done today, pending results, but it looks like he is not having any acute issues. 2. Acute congestive heart failure exacerbation. He was placed on Lasix which I have stopped already because of the elevation of BUN and creatinine. We will monitor. He will receive a little bit of fluid x1. 3. Acute kidney injury on chronic kidney disease. He will receive 500 mL of normal saline slowly. I will follow that up. 4. History of chronic leukopenia and normocytic anemia with a component of iron deficiency. I have placed this patient back on his home medication. I started this patient on folic acid as well. Hematology/oncology has been consulted. 5. Chronic atrial fibrillation. Continue with his medications. I will stop the Lovenox and I will start this patient on Eliquis. 6. Dementia. Continue with donepezil. This seems to be stable. 7. Benign prostatic hypertrophy. Continue with tamsulosin. 8. Hyperlipidemia. Continue with pravastatin. 9. Gastroesophageal reflux disease. Continue with proton pump inhibitors. 10. Diabetes. Continue with the same management. 11. Overall, this patient seems to be stable. It looks like his stress test does not have any acute problems, pending results, and pending hematology/oncology recommendations. He will receive 500 mL of fluid today to see if this can help with the kidney function. If tomorrow, this patient is doing fine and the kidney function is getting a little bit better, likely he can go home. cc: Robson Acuna MD
--- NOTE | 2019-06-11 17:48 | HEMO/ONC CONSULTATION ---
DATE: 06/11/2019 REASON FOR CONSULTATION: This is a known patient of ours for the treatment of myelofibrosis. HISTORY OF PRESENT ILLNESS: Mr. Thompson is a very pleasant 69-year-old male who we treat in the office for myelofibrosis. The patient also has dementia and is cared for by his daughter. The patient's myelofibrosis causes him to have chronic low hemoglobin and hematocrit, which we treat often with blood transfusions and Procrit. The patient is currently on Jakafi therapy at 10 mg twice a day. The patient was last seen in our office on 05/31/2019. His hemoglobin was 8. He received a 60,000 unit Procrit shot on that day. Over the weekend, the patient came to the ER with complaints of intermittent chest pain, which he states had been going on for several months. Due to his dementia, the emergency room physician had a great deal of difficulty obtaining historical data from the patient. His evaluation showed that he was hemodynamically stable. Due to his cardiac history, they admitted him for further management. PAST MEDICAL HISTORY: 1. Coronary artery bypass graft in the requiring multiple stents. 2. Transcutaneous aortic valve replacement in 2017. 3. Previous history of chronic alcohol abuse, which he quit about 8 years ago. 4. Dementia. 5. 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 6. CHF with ejection fraction of 35% in 2018, which improved to 55% in 2019. 7. History of COPD. PAST SURGICAL HISTORY: 1. Transcutaneous aortic valve replacement. 2. CABG. SOCIAL HISTORY: No alcohol, smoking, or illicit drugs. ALLERGIES: No known drug allergies. CURRENT MEDICATIONS: 1. Donepezil. 2. Allopurinol. 3. Pravastatin. 4. Carvedilol. 5. Metformin. 6. Furosemide. 7. Spironolactone. 8. Entresto. 9. Tamsulosin. 10. Apixaban. 11. Omeprazole. 12. Doxepin. 13. Jakafi 10 mg b.i.d. REVIEW OF SYSTEMS: The patient complains of occasional chest pain. PHYSICAL EXAMINATION: Vital signs: Temperature 98.1 degrees, pulse rate 70, respiratory rate 16, blood pressure 103/75, O2 saturation 99% on room air. He is in 0/10 pain. General: The patient is in no acute distress. He is very pleasant. HEENT: Sclerae anicteric. PERRLA. Oral mucosa is normal. Cardiovascular: Normal S1, S2. Irregularly irregular rhythm. Respiratory: Lung sounds are clear to auscultation. Normal respiratory effort. Abdomen: Soft, nontender, nondistended. Extremities: Slight bilateral lower extremity edema. LABORATORY DATA: WBCs 3.71, hemoglobin 7.4, hematocrit 24.7, platelet count 153,000, ANC 2.5, creatinine 1.5. ASSESSMENT: 1. Myelofibrosis. The patient has been on Jakafi therapy 10 mg b.i.d. since August of 2018 due to his disease process. He has chronic anemia and requires interval transfusions. Jakafi also can make his ANC low. Hence hold Jakafi for now. 2. Neutropenia. The patient received 1 dose of Neupogen over the weekend. It is his medication Jakafi that causes his ANC to be low at times. Continue to support with Neupogen as needed for an ANC of less than 1.5. 3. History of atrial fibrillation. The patient is on medications per Cardiology. Continue recommendations per their service. 4. Coronary artery disease status post coronary artery bypass graft. The patient will need a transfusion for hemoglobin less than 8 or if he is symptomatic. He is monitored closely by Cardiology. 5. Dementia. The patient has chronic history of dementia. He is cared for closely by his daughters, but he is currently living alone. Dictated by ANDREW Rodriguez for Twan Krueger MD cc: Twan Krueger MD [facility]
[2019-06-11] MEDS: ARICEPT PO SCH (22:20)
[2019-06-11] MEDS: ELIQUIS PO SCH (22:20)
[2019-06-12] MEDS: HUMALOG SUBQ SCH ×4 (06:56→21:52)
[2019-06-12] MEDS: PRILOSEC PO SCH (06:58)
[2019-06-12 09:00] LABS: BASO# 0.01 X1000 (0.0-0.2); BASO% 0.3 % (0.0-0.8); EOS# 0.01 X1000 (0.0-0.7); EOS% 0.3 % (0.0-10.0); HEMATOCRIT 21.6 % (42.0-52.0); HEMOGLOBIN 6.5 g/dL (14.0-18.0); IMM GRAN# 0.04 X1000 (0.0-0.04); IMM GRAN% 1.2 % (0.0-0.5); LYMPH# 0.71 X1000 (1.2-3.4); LYMPH% 21.4 % (20.5-51.1); MCH 26.1 PG (27-31); MCHC 30.1 g/dL (33-37); MCV 86.7 FL (81-99); MONO# 0.49 X1000 (0.11-0.59); MONO% 14.8 % (1.7-9.3); NEUT# 2.06 X1000 (1.4-6.5); PLT 123 X1000 (130-400); RBC 2.49 XMIL (4.7-6.1); RDW 18.4 % (11.5-14.5); WBC 3.32 X1000 (4.8-10.8)
[2019-06-12 09:14] LABS: CALCIUM 8.7 mg/dL (8.8-10.2); CREATININE 1.3 mg/dL (0.7-1.2); POTASSIUM 4.4 mmol/L (3.5-5.1)
[2019-06-12] MEDS: FLOMAX PO SCH (09:58)
[2019-06-12] MEDS: FOLIC ACID PO SCH (09:58)
[2019-06-12] MEDS: COREG PO SCH ×2 (09:58→21:51)
[2019-06-12] MEDS: ASPIRIN PO SCH (09:58)
[2019-06-12] MEDS: ENTRESTO 24 MG-26 MG TABLET PO SCH ×2 (09:58→21:51)
[2019-06-12] MEDS: ALDACTONE PO SCH (09:58)
[2019-06-12] MEDS: ELIQUIS PO SCH ×2 (09:58→21:51)
[2019-06-12] MEDS: ZYLOPRIM PO SCH (09:58)
[2019-06-12] MEDS: LIPITOR PO SCH (09:58)
[2019-06-12 10:15] LABS: LYMPHS 20 % (21-51); MONO 12 % (1-9); SEGS 64 % (42-75)
[2019-06-12 10:16] LABS: ANISOCYTOSIS 1+; HYPOCHROM 1+
--- NOTE | 2019-06-12 10:19 | DISCHARGE SUMMARY ---
ADMISSION DATE: 06/09/2019 DISCHARGE DATE: He is a patient of Dr. Jeff Grimm. He came in with intermittent chest pain. This is a 69- year-old white male with past medical history of coronary artery disease, CABG bypass in , multiple stents in the past, transcutaneous aortic valve replacement in 2016, chronic anemia, portal hypertension, ascites, chronic atrial fibrillation, on Eliquis, came in with chief complaint of intermittent chest pain. It had been ongoing for several months. Patient has some mild dementia. According to patient's daughter, the patient does mention he was having intermittent chest pain for some time, located in the center of his chest associated with shortness of breath, palpitations. At that time could not tell them the nature of the pain. Past medical history again reviewed. 1. Coronary artery bypass graft , recent requiring multiple stents. 2. Transcutaneous aortic valve replacement 2016. 3. Previous history of chronic alcohol abuse. He quit about 8 years ago. 4. Dementia. 5. Chronic anemia. 6. Congestive heart failure, ejection fraction 35% measured in 2018, improved to 55% in 2019. 7. History of chronic obstructive pulmonary disease. PAST SURGICAL HISTORY: 1. Includes transcutaneous aortic valve replacement. 2. Coronary artery bypass grafting in the . LIST OF MEDICATIONS WHEN HE CAME IN: 1. Donepezil 10 mg at nighttime. 2. Allopurinol 100 mg daily. 3. Pravastatin 20 mg daily. 4. Coreg 12.5 mg b.i.d. 5. Metformin 500 mg b.i.d. 6. Lasix 40 mg a day. 7. Spironolactone 25 mg a day. 8. Entresto 1 tablet b.i.d. 9. Tamsulosin 0.4 mg daily. 10. Apixaban 5 mg b.i.d. 11. Omeprazole 40 mg a day. 12. Doxepin 3 mg at nighttime. ADMISSION DIAGNOSES: 1. Non ST elevation myocardial infarction. He had nonspecific ST wave on the EKG. Chest pain. History of coronary artery disease and status post CABG. EKG did not have any acute coronary syndrome related ST-T wave changes and so Cardiology was following. 2. Acute congestive heart failure. Ejection fraction was 35% in 2017 and then improved to 55% in 2019. On presentation he had elevated jugular venous pressures, bilateral lower extremity edema, S3 gallop, so was started on IV Lasix. 3. Chronic leukopenia, normocytic anemia, a component of iron deficiency. Repeated iron studies. 4. Chronic atrial fib, rate was controlled. He is on his Coreg and his apixaban. 5. Dementia. He continued his Donepezil and held his tricyclic antidepressant. 6. He is on tamsulosin for benign prostatic hypertrophy. 7. Patient back in 2018 was diagnosed as having ascites, portal hypertension. The liver biopsy at the time had reactive liver parenchyma without known definitive cirrhosis. The patient had an echocardiogram done repeat on 06/09/2019, and showed a bioprosthetic valve in the aortic position was stable, mitral valve normal, atrial fib was noted. Pulmonic valve was normal. Mild pulmonary regurgitation. Tricuspid valve was normal. There was mitral annular calcification, biatrial enlargement. His pulmonary artery pressure was 58 mmHg. The aortic valve area is 1.1 cm2 keeping with the bioprosthetic aortic valve. No aortic regurgitation. Normal left ventricular cavity size and his estimated ejection fraction is 50 to 55%. There is mild septal hypokinesis. No pericardial effusion. No sign of intracardiac mass or thrombus. Cardiology evaluated. He has chronic atrial fib, rate seemed to be under control. He has a significant anemia which is contributing to his symptoms. He is on Coreg and Eliquis for his atrial fibrillation. His anemia appears to be chronic and so they continued Lasix to diurese. He had a myocardial perfusion scan on 06/11/2019. No evidence of abnormal extracardiac uptake. Perfusion images showed small size, moderate intensity fixed defect located in the basal anterior laterally. This suggests possible scar. End-diastolic volume was 163 mL, end systolic volume was 84 mm. He had a reduced ejection fraction of 48%, some evidence for global hypokinesis on this study. Seemed to be improving. Hematology/Oncology was asked to see. He has myelofibrosis. He has been on Jakafi therapy 10 mg b.i.d. since August 2018 due to his disease process, his chronic anemia requiring interval transfusion and the Jakafi can lower the neutrophil count. Neutropenia. Received 1 dose of Neupogen over the weekend. Jakafi has caused his neutrophils to be low. Continue support with Neupogen if his neutrophil count is left than 1.5. He is anxious to go home. REVIEW OF HIS ORDERS: He is on Aricept 10 mg at bedtime, allopurinol 100 mg daily, Eliquis 5 mg b.i.d., aspirin 81 mg a day, Lipitor 40 mg a day, Coreg 12.5 mg b.i.d., folic acid 1 mg p.o. daily, Prilosec 40 mg a day, sacubitril valsartan combination. He takes a 49/51 tablet twice a day, and Flomax 0.4 mg daily, Lasix 40 mg IV q.12. His blood work today white count 3320, hematocrit is 21 hemoglobin is 6.5 with an MCV of 86, platelet count 123,000. Sodium 139, potassium 4.4, chloride 104, BUN is 40, creatinine 1.3 which has come down from 1.5 yesterday. On presentation, his creatinine is 1.3. Volume status looks good. Congestive heart failure appears compensated. Question is whether we will want to transfuse him some more blood since his hemoglobin is less than 7. cc: Rajesh Barber MD
[2019-06-12] MEDS ORDERED: BENADRYL PO ONE (10:43)
[2019-06-12] MEDS ORDERED: TYLENOL PO ONE (10:43)
--- NOTE | 2019-06-12 13:51 | HEMO/ONC PROGRESS NOTE ---
DATE: 06/12/2019 SUBJECTIVE: Mr. Thompson states he is not feeling very well today. He states he has continued to have some chest pain. He is tired and just does not quite feel like his normal self. No significant events have occurred overnight. The patient's lab work is not back at the time of my assessment this morning. OBJECTIVE: Vital Signs: Temperature 98.7 degrees, pulse rate 51, respiratory rate 18, blood pressure 110/56, and O2 saturation 100% on room air. He is in 0/10 pain. General: The patient is very calm in no acute distress. HEENT: Sclerae is anicteric. PERRLA. Oral mucosa is normal. Cardiovascular: Normal S1, S2. Heart rate and rhythm regular. Respiratory: Lung sounds are clear to auscultation. Normal respiratory effort. Abdomen: Soft, nontender, and nondistended. Extremities: Slight lower extremity edema noted. Musculoskeletal: Muscular abnormality to the left biceps. Patient complains of tenderness. Muscle appears displaced. Neurological: Alert only to self. LABORATORY: hemoglobin 6.5, hematocrit 21.6, and platelet count is 123,000, ANC 2.6, BUN 40, and creatinine 1.3. ASSESSMENT AND PLAN: 1. Myelofibrosis. Myelofibrosis causes significant anemia and neutropenia. He requires transfusions and Neupogen for support. Jakafi is currently on hold. We will follow up with him in the office as an outpatient. 2. Neutropenia. The patient has received 1 dose of Neupogen over the weekend. This brought his ANC back up. Continue to support with Neupogen for an ANC of less than 1.5. 3. Normocytic anemia due to myelofibrosis. His condition as well as his Jakafi causes significant anemia. The patient needs transfusions for hemoglobin of less than 8 due to coronary artery disease. I was called by nursing staff for hemoglobin of 6.5, and ordered 2 units of packed red blood cells to be given today. Repeat CBC should be done either in the hospital tomorrow or here at the clinic as an outpatient. 4. History of atrial fibrillation. The patient is on medications per Cardiology. He continues to follow closely with them. 5. CAD status post CABG. Due to his CAD, the patient will need to transfuse for hemoglobin less than 8 or if he is symptomatic. He is monitored closely by Cardiology. He has a significant heart history. Dr. Barber's note states he had a non ST elevation MA. The patient has a reduced ejection fraction of 48%. 6. Dementia. The patient has a history of chronic dementia. He often forgets where he is at or where he is going. He currently lives alone. His daughters takes care of him. The patient remains, however, very pleasant. Dictated by ANDREW Rodriguez for Twan Conrad MD As above. Transfuse 2 U PRBC today. Continue to hold Jakafi until next office recheck. Discussed with Dr. Barber. Twan conrad MD cc: Twan Conrad MD [facility]
[2019-06-12] MEDS ORDERED: LASIX IV ONE (14:02)
[2019-06-12] MEDS ORDERED: NS 500 ML ONE (14:13)
[2019-06-12] MEDS: ARICEPT PO SCH (21:51)
[2019-06-13] MEDS: PRILOSEC PO SCH (06:34)
[2019-06-13] MEDS: HUMALOG SUBQ SCH (06:35)
[2019-06-13 08:16] VITALS: BP 119/62
[2019-06-13 08:35] LABS: ALB/GLOB RATIO 1.6; ALBUMIN 3.9 g/dL (3.5-5.0); CALCIUM 8.7 mg/dL (8.8-10.2); CREATININE 1.4 mg/dL (0.7-1.2); POTASSIUM 4.4 mmol/L (3.5-5.1); TOTAL BILIRUBIN 0.93 mg/dL (0.20-1.00); TOTAL PROTEIN 6.4 g/dL (6.3-8.3)
[2019-06-13 08:38] LABS: BASO# 0.01 X1000 (0.0-0.2); BASO% 0.4 % (0.0-0.8); EOS# 0.01 X1000 (0.0-0.7); EOS% 0.4 % (0.0-10.0); HEMATOCRIT 26.9 % (42.0-52.0); HEMOGLOBIN 8.4 g/dL (14.0-18.0); IMM GRAN# 0.05 X1000 (0.0-0.04); IMM GRAN% 1.8 % (0.0-0.5); LYMPH# 0.43 X1000 (1.2-3.4); LYMPH% 15.5 % (20.5-51.1); MCHC 31.2 g/dL (33-37); MCV 86.5 FL (81-99); MONO# 0.39 X1000 (0.11-0.59); MONO% 14.1 % (1.7-9.3); NEUT# 1.88 X1000 (1.4-6.5); NEUT% 67.8 % (42.2-75.2); PLT 125 X1000 (130-400); RBC 3.11 XMIL (4.7-6.1); RDW 17.3 % (11.5-14.5); WBC 2.77 X1000 (4.8-10.8)
[2019-06-13] MEDS: ENTRESTO 24 MG-26 MG TABLET PO SCH (09:29)
[2019-06-13] MEDS: FOLIC ACID PO SCH (09:29)
[2019-06-13] MEDS: FLOMAX PO SCH (09:29)
[2019-06-13] MEDS: ALDACTONE PO SCH (09:29)
[2019-06-13] MEDS: ELIQUIS PO SCH (09:29)
[2019-06-13] MEDS: COREG PO SCH (09:29)
[2019-06-13] MEDS: ASPIRIN PO SCH (09:29)
[2019-06-13] MEDS: ZYLOPRIM PO SCH (09:29)
[2019-06-13] MEDS: LIPITOR PO SCH (09:29)
--- NOTE | 2019-06-13 09:45 | DISCHARGE SUMMARY ---
ADMISSION DATE: 06/09/2019 DISCHARGE DATE: 06/13/2019 HISTORY OF PRESENT ILLNESS: He is a patient of Dr. Jeff Grimm. He came in with intermittent chest pain on 06/09/2019. This is a 69-year-old male with a past medical history of coronary artery disease requiring CABG in the , multiple stents in the past, transcutaneous aortic valve replacement in 2017, chronic anemia, portal hypertension, ascites, chronic atrial fibrillation. He is on Eliquis. He came in with chief complaint of intermittent chest pain, which he has had for several months. The patient does have some dementia, and the patient's daughter provided most of the history. The patient was admitted to the hospital complaining of the pain being in the center of his chest associated with shortness of breath, palpitations, but could not really give the nature of the chest pain. No radiation that he reported. At times, physical exertion makes it worse and sometimes at rest he may get better. PAST MEDICAL HISTORY: His past medical history is again reviewed. 1. Coronary artery disease, graft in requiring multiple stents. 2. Transcutaneous aortic valve replacement in 2017. 3. Previous history of chronic alcohol abuse, which he quit alcohol about 8 years ago. 4. Dementia. 5. Chronic anemia. 6. Congestive heart failure with ejection fraction 35% in 2018, improved to 55% in 2019. 7. History of chronic obstructive pulmonary disease. PAST SURGICAL HISTORY: 1. Includes transcutaneous aortic valve replacement. 2. Coronary artery bypass graft. MEDICATIONS: His medications when he came in were: 1. Donepezil 10 mg at nighttime. 2. Allopurinol 100 mg a day. 3. Pravastatin 20 mg a day. 4. Coreg 12.5 mg b.i.d. 5. Metformin 500 mg b.i.d. 6. Lasix 40 mg a day. 7. Spironolactone 25 mg a day. 8. Entresto 1 b.i.d. 9. Tamsulosin 0.4 mg a day. 10. Apixaban 5 mg b.i.d. 11. Omeprazole 40 mg a day. 12. Doxepin 3 mg at nighttime as needed. ADMISSION DIAGNOSES/HOSPITAL COURSE: 1. I was concerned he had a [id number] myocardial infarction, but he has a history of coronary artery disease. EKG did not have any acute coronary syndrome related ST-T changes, so followed serial EKGs and troponins. I gave him 325 mg of aspirin. 2. Congestive heart failure exacerbation. Ejection fraction was measured at 35% in 2017 and improved to 55% in 2019. He did have some elevated jugular venous pressure, bilateral lower extremity edema, S3 gallop suggestive of acute heart failure, so started him on some intravenous Lasix and continued him on spironolactone, Entresto, Coreg, and followed up with an echocardiogram. 3. History of chronic leukopenia, normocytic anemia, and a component of iron deficiency and so repeated some studies, and we did give him some packed red blood cells. Oncology has been evaluating him and following since 2018, and so Oncology/Hematology was asked to follow. 4. Chronic atrial fibrillation. His rate seemed to be controlled. He is on apixaban. 5. Dementia. 6. History of benign prostatic hypertrophy. Continue tamsulosin. 7. He was diagnosed with ascites and portal hypertension in the past, though his liver biopsy at that time only showed reactive liver parenchyma without known definitive cirrhosis. The patient's serial EKGs were unremarkable, and as far as his cardiac enzymes, they were abnormal. Echocardiogram and Cardiolite myocardial perfusion test was ordered. Echocardiogram done on 06/09/2019 showed a bioprosthetic valve in aortic position, which was stable. Mitral valve was normal. Atrial fibrillation was noted, underlying rhythm. Pulmonic valve was normal. Mild pulmonary regurgitation. Tricuspid valve was normal. Mitral annular calcification, biatrial enlargement. Moderate mitral regurgitation, moderate tricuspid regurgitation. Peak velocity across tricuspid valve was 3.5 mm/second. Pulmonic artery systolic pressure was 58 mmHg, and the aortic valve area was 1.1 cm sq. Normal left ventricular size and ejection fraction 50% to 55%. So, left ventricular function looked good. He had a myocardial perfusion scan done on 06/11/2019, no evidence of abnormal extracardiac uptake. Perfusion images demonstrated small size, moderate intensity fixed defect located in the basal anterior lateral. This suggests possible scar. No evidence of ischemia on the study. Ejection fraction measured at 48%. Hematology/Oncology, Dr. Krueger asked to follow. 8. He has a history of myelofibrosis. He is on Jakafi therapy 10 mg twice daily since August 2018 due to disease process. He has chronic anemia, requires interval transfusions, and Jakafi can make a granular neutrophil count low, so they are holding the Jakafi for a little while, and they gave him some Neupogen. His white count came up nicely. His hemoglobin did drop below 7, and we gave him 2 units packed red blood cells, which he tolerated well, and wanted to go home on 06/13/2019. I discussed with Dr. Krueger, and I think he is ready, so we will let him go home. Continue his home medications. DISCHARGE MEDICATIONS: He will be on: 1. Eliquis 5 mg b.i.d. 2. Coreg 12.5 mg b.i.d. 3. Aricept 10 mg every night at bedtime. 4. Silenor, which is doxepin, 3 mg p.o. every night at bedtime p.r.n. 5. Lasix 40 mg a day. 6. Glucophage 500 mg p.o. b.i.d. 7. Omeprazole 40 mg a day. 8. Pravachol 20 mg daily. 9. Jakafi, the drug name is ruxolitinib phosphate 10 mg b.i.d. 10. Entresto 24-26 one tablet b.i.d.. 11. Spironolactone 25 mg a day. 12. Flomax 0.4 mg a day. FOLLOWUP: With Dr. Krueger. cc: Rajesh Barber MD
--- NOTE | 2019-06-13 10:39 | HEMO/ONC PROGRESS NOTE ---
DATE: 06/13/2019 SUBJECTIVE: The patient is comfortable this morning. He denies any complaints. He states he does not quite feel normal, but he is ready to go home. He states he has had chest pain for months. There is no change. Hospitalist is going to let him go home today. OBJECTIVE: Vital Signs: Temperature 98.3 degrees, pulse rate 92, respiratory rate 19, blood pressure 119/62, and O2 saturation 99% on room air. He is in 0/10 pain. General: On physical exam, the patient is very calm and in no acute distress. HEENT: Sclerae is anicteric. PERRLA. Oral mucosa is normal. Cardiovascular: Normal S1 and S2. Heart rate and rhythm is regular. Respiratory: Lung sounds are clear to auscultation. Normal respiratory effort. Abdomen: Soft, nontender, nondistended. Extremities: Slight lower extremity edema noted. Neurological: Alert only to self. No focal motor deficits noted. LABORATORY DATA: WBCs 2.77, hemoglobin 8.4, hematocrit 26.9, platelet count 125,000. ANC 1.88. Creatinine 1.4, calcium 8.7, alkaline phosphatase 265. ASSESSMENT AND PLAN: 1. Myelofibrosis. The patient's Jakafi therapy for his myelofibrosis causes significant cytopenias including anemia and neutropenia. He requires support for both. We will follow up with him as an outpatient in the office after discharge. 2. Neutropenia. The patient's neutropenia resolved after 1 dose of Neupogen over the weekend. We will continue to monitor. We will see him early next week for repeat CBC. 3. Normocytic anemia due to myelofibrosis. His condition, as well as Jakafi, cause significant anemia. The patient needs continual transfusions for hemoglobin less than 8 due to coronary artery disease. His hemoglobin and hematocrit have improved today. We will follow up next week. 4. History of atrial fibrillation, congestive heart failure, coronary artery disease. The patient did not have a [id number] myocardial infarction as originally thought. He is followed closely by Cardiology. He will continue to follow up with them after his discharge. 5. Dementia. The patient has a long history of dementia. He often forgets where he is at or where he is going. His daughters take very good care of him. Dictated by ANDREW Rodriguez for Twan Krueger MD cc: Twan Krueger MD [facility]
== END 2019-06-13 11:10 | disposition home health service (06) | DRG 280 ==
LOC: ED 23:34 → EDIPHOLD 06-09 03:31 → SUATTDRO 06-09 03:31 → EDIPHOLD 06-09 10:03 → 3N 06-09 14:37
PROVIDERS: ATTEND Emergency Medicine